=== PATIENT | female | born 1990 | race African-American/Black ===

== ENCOUNTER 2020-12-27 16:59 | Emergency (ER) | payer MEDICAID ==
[~2020-12-27] VITALS: Ht 172.7 cm; Wt 90.7 kg
[2020-12-27 17:00] VITALS: BP 164/70
[2020-12-27] MEDS ORDERED: NACL 0.9% 1,000 ML IV ONE (17:25)
--- NOTE | 2020-12-27 17:37 | NUR ---
30 yo f biba from home c/o accidental overdose today on Ibprofen. States she took 16 tabs 200mg tablets about an 1 hour ago. c/o epigastric pain and nausea. in ed, vss. aox4. abdomen soft, nontender. ermd made aware of pt status. hx OCD, Bipolar, Seizures rx Dilantin nka
--- NOTE | 2020-12-27 17:47 | NUR ---
urine collected and placed in dirty utility
[2020-12-27 17:51] LABS: BASOPHILS # (AUTO) 0.1 K/uL (0.00-0.22); BASOPHILS % (AUTO) 2.6 % (0.0-2.0); EOSINOPHILS # (AUTO) 0.3 K/uL (0-0.4); EOSINOPHILS % (AUTO) 6.2 % (0.0-4.0); HEMOGLOBIN 11.9 g/dL (12.0-16.0); LYMPHOCYTES # (AUTO) 1.6 K/uL (2.5-16.5); LYMPHOCYTES % (AUTO) 38.5 % (20.5-51.1); MEAN CORPUSCULAR HEMOGLOBIN 26 pg (27-31); MEAN CORPUSCULAR HGB CONC 32 g/dL (33-37); MEAN CORPUSCULAR VOLUME 80.4 fL (80-94); MONOCYTES # (AUTO) 0.3 K/uL (0.8-1.0); MONOCYTES % (AUTO) 7.1 % (1.7-9.3); NEUTROPHILS # (AUTO) 1.9 K/uL (1.8-7.7); NEUTROPHILS % (AUTO) 45.6 % (42.2-75.2); PLATELET COUNT (AUTO) 321 K/uL (140-450); RED CELL DISTRIBUTION WIDTH 14.8 % (11.6-13.7); WHITE BLOOD COUNT (AUTO) 4.1 K/uL (4.8-10.8)
[2020-12-27] MEDS ORDERED: PANTOPRAZOLE 40 MG INJ VIAL IVP ONE (18:05)
[2020-12-27] MEDS ORDERED: MORPHINE SULFATE 4 MG/ML SYR IVP ONE (18:05)
[2020-12-27 18:06] LABS: ALBUMIN 4.4 g/dL (3.4-5.0); ANION GAP 11.5 (8-16); ASPARTATE AMINOTRANSFERASE 19 U/L (15-37); CHLORIDE 106 mmol/L (98-107); GFR ARICAN-AMERICAN 84 mL/min (>90); GLUCOSE 94 mg/dL (74-106); POTASSIUM 4.5 mmol/L (3.5-5.1); SODIUM SERUM 141 mmol/L (136-145); TOTAL BILIRUBIN 0.4 mg/dL (0.0-1.0); UREA NITROGEN, BLOOD 7 mg/dL (7-18)
[2020-12-27 18:07] LABS: ACETAMINOPHEN < 0.5 ug/ml (10-30); SALICYLATE < 2.8 mg/dL (2.8-20.0)
[2020-12-27] MEDS ORDERED: LORazepam 2 MG/ML VIAL ONE (18:22)
--- NOTE | 2020-12-27 18:22 | NUR ---
Pt observed having a seizure in bed 8. at bedside. KISHAN Ness made aware. KISHAN at bedside. Suction set up at bedside. Seizure pads applied.
[2020-12-27] MEDS ORDERED: LORazepam 2 MG/ML VIAL IVP ONE (18:25)
[2020-12-27] MEDS ORDERED: OMEP40EC24 PO (18:45)
[2020-12-27 19:04] LABS: BARBITURATE, URINE NEGATIVE ng/ml (NEG <=200); BENZODIAZEPINE, URINE NEGATIVE ng/mL (NEG <=200); CANNABINOID, URINE NEGATIVE ng/mL (NEG <=50); COCAINE, URINE NEGATIVE ng/mL (NEG <=300); OPIATE, URINE NEGATIVE ng/mL (NEG <=2000); PHENCYCLIDINE SCREEN,URINE NEGATIVE ng/mL (NEG <=25)
--- NOTE | 2020-12-27 19:32 | NUR ---
report given to viji méndez. all cares transferred at this time.
[2020-12-27 19:48] VITALS: BP 164/70
--- NOTE | 2020-12-27 19:48 | NUR ---
Patient discharged with v/s stable. Written and verbal after care instructions given and explained. Patient alert, oriented and verbalized understanding of instructions. Ambulatory with steady gait. All questions addressed prior to discharge. IV ACCESS AND ID band removed. Patient advised to follow up with PMD. Rx of OMEPRAZOLE given. Patient educated on indication of medication including possible reaction and side effects. Opportunity to ask questions provided and answered.
== END 2020-12-27 19:48 | disposition home or self-care (01) ==
LOC: MED 16:59
DX: T39.311A Poisoning by propionic acid derivatives, accidental (unintentional), initial encounter (principal); R11.0 Nausea; Y92.89 Other specified places as the place of occurrence of the external cause
CPT/HCPCS: 36415; 80053; 80305; 83690; 85025; 96361; 96374; 96375; 99284; C9113; G0480; J2060; J2270; J7030